=== PATIENT | female | born 1965 ===

== ENCOUNTER → 2017-07-20 14:19 | Outpatient (REF) | payer MEDICARE, MEDICAID, SELFPAY | LOC: LAB 14:19 | PROVIDERS: Visit Provider Family Medicine | DX: R05 Cough (principal) | CPT/HCPCS: 87275; 87276 ==

== ENCOUNTER → 2018-01-17 20:15 | Outpatient (REF) | payer MEDICARE, MEDICAID, SELFPAY | LOC: LAB 20:15 | PROVIDERS: Visit Provider Family Medicine | DX: R19.7 Diarrhea, unspecified (principal) | CPT/HCPCS: 87045; 87177 ==